=== PATIENT | female | born 1950 | race Caucasian/White ===

== ENCOUNTER 2019-05-27 06:45 | Emergency (ER) | payer OTHER ==
[~2019-05-27] VITALS: Ht 154.9 cm; Wt 57.2 kg
[2019-05-27 07:06] VITALS: Ht 154.9 cm; Wt 57.2 kg
[2019-05-27 07:51] LABS: BASOPHIL % 0.5 % (0-2); PLATELET COUNT 286 x10^3mcL (130-400); RED CELL DISTRIBUTION WIDTH 14.5 % (11.5-14.5)
[2019-05-27 08:39] LABS: ERYTHROCYTE SED RATE 25 mm/hr (0-30)
[2019-05-27 08:46] LABS: ALBUMIN 3.4 g/dL (3.4-5.0); C REACTIVE PROTEIN 0.5 mg/dL (<=0.9); CALCIUM 8.6 mg/dL (8.5-10.1); CARBON DIOXIDE 24.1 mmol/L (21-32); CHLORIDE SERUM 107 mmol/L (98-107); CREATININE SERUM 0.7 mg/dL (0.6-1.0); GFR1 > 60 mL/min; GLUCOSE SERUM 93 mg/dL (74-106); POTASSIUM SERUM 4.2 mmol/L (3.5-5.1); SODIUM SERUM 141 mmol/L (136-145)
[2019-05-27 09:19] LABS: AST/SGOT 30 U/L (15-37); BILIRUBIN TOTAL 0.8 mg/dL (0.20-1.00); TOTAL PROTEIN, SERUM 7.1 g/dL (6.4-8.2); URIC ACID 3.7 mg/dL (2.6-6.0)
[2019-05-27 09:20] LABS: ALKALINE PHOSPHATASE 88 U/L (46-116); ALT/SGPT 39 U/L (14-59)
[2019-05-27 12:31] VITALS: BP 104/57
== END 2019-05-27 12:31 | disposition home or self-care (01) ==
LOC: ED 06:45
PROVIDERS: Emergency Medicine
DX: L08.9 Local infection of the skin and subcutaneous tissue, unspecified (principal); Z98.890 Other specified postprocedural states
CPT/HCPCS: J2543; J3370; J7050; Q0092

== ENCOUNTER 2019-06-04 12:37 | Emergency (ER) | payer OTHER ==
[~2019-06-04] VITALS: Ht 154.9 cm; Wt 57.8 kg
[2019-06-04 12:44] VITALS: Ht 154.9 cm; Wt 57.8 kg
[2019-06-04 14:55] VITALS: BP 118/72
== END 2019-06-04 14:55 | disposition home or self-care (01) ==
LOC: ED 12:37
DX: L03.011 Cellulitis of right finger (principal); M19.90 Unspecified osteoarthritis, unspecified site; Z90.89 Acquired absence of other organs

== ENCOUNTER 2019-06-28 15:35 | Emergency (ER) | payer OTHER, MEDICARE ==
[~2019-06-28] VITALS: Ht 157.5 cm; Wt 56.7 kg
[2019-06-28 16:09] VITALS: Ht 157.5 cm; Wt 56.7 kg
[2019-06-28 17:15] LABS: CALCIUM 8.3 mg/dL (8.5-10.1); CARBON DIOXIDE 24.8 mmol/L (21-32); CHLORIDE SERUM 103 mmol/L (98-107); CREATININE SERUM 0.8 mg/dL (0.6-1.0); GFR1 > 60 mL/min; GLUCOSE SERUM 110 mg/dL (74-106); SODIUM SERUM 137 mmol/L (136-145)
[2019-06-28 17:19] LABS: ALBUMIN 3.5 g/dL (3.4-5.0); ALKALINE PHOSPHATASE 121 U/L (46-116); ALT/SGPT 125 U/L (14-59); AST/SGOT 193 U/L (15-37); BILIRUBIN TOTAL 0.4 mg/dL (0.20-1.00); TOTAL PROTEIN, SERUM 7.1 g/dL (6.4-8.2)
[2019-06-28 17:24] LABS: BASOPHIL % 0.5 % (0-2); PLATELET COUNT 254 x10^3mcL (130-400); RED CELL DISTRIBUTION WIDTH 14.3 % (11.5-14.5)
[2019-06-28 18:38] VITALS: BP 110/62
== END 2019-06-28 18:38 | disposition home or self-care (01) ==
LOC: ED 15:35
PROVIDERS: Emergency Medicine
DX: J10.1 Influenza due to other identified influenza virus with other respiratory manifestations (principal); Z98.890 Other specified postprocedural states; Z90.89 Acquired absence of other organs
CPT/HCPCS: 36415; 87804